=== PATIENT | male | born 1985 | race Caucasian/White ===

== ENCOUNTER 2017-02-20 19:24 | Emergency (ER) | payer MEDICAID ==
[~2017-02-20] VITALS: Ht 180.3 cm; Wt 85.0 kg
[2017-02-20] MEDS ORDERED: MethylPREDNISolone SOD SUCC 125 MG/2 ML VIAL IVP ONE (21:00)
[2017-02-20 22:54] VITALS: BP 132/79
== END 2017-02-20 22:56 | disposition home or self-care (01) ==
LOC: EMS 19:26
DX: L25.8 Unspecified contact dermatitis due to other agents (principal)
CPT/HCPCS: 96374; 99284; J2930; 99283